=== PATIENT | female | born 1975 | race Caucasian/White ===

== ENCOUNTER 2017-03-02 09:16 | Emergency (ER) | payer SELFPAY ==
[2017-03-02] MEDS ORDERED: KETOROLAC TROMETHAMINE 30 MG/ML 1 ML VIAL ONE (10:05)
--- NOTE | 2017-03-02 10:45 | RAD ---
LEFT KNEE 4 VIEWS HISTORY: Status post fall. Frontal, lateral, and bilateral oblique views of the left knee. COMPARISON: None. ALIGNMENT: Grossly unremarkable.. JOINT SPACES: Preserved. JOINT EFFUSION: Minimal effusion. CALCIFICATIONS: No abnormal calcifications noted. FRACTURE: No displaced acute fracture. Findings suggest remote proximal fibular fracture. SOFT TISSUES: Prepatellar soft tissue prominence. IMPRESSION: No malalignment or displaced acute fracture noted. Prominence of prepatellar soft tissues. Minimal joint effusion.
== END 2017-03-02 11:21 | disposition home or self-care (01) ==
LOC: ED 09:16
DX: M25.462 Effusion, left knee (principal); W17.81XA Fall down embankment (hill), initial encounter; Y92.9 Unspecified place or not applicable
CPT/HCPCS: 73564; 99283 ×2; J1885